=== PATIENT | male | born 1945 | race Caucasian/White ===

== ENCOUNTER 2022-08-27 12:19 | Emergency (ER) | payer OTHER, MEDICARE ==
[2022-08-27] MEDS ORDERED: Morphine 10 MG/ML Syringe IVPUSH ONE ×2 (12:29→12:40)
[2022-08-27] MEDS ORDERED: Ondansetron 4 MG/2 ML SDV IVPUSH ONE (12:30)
[2022-08-27] MEDS: Sodium Chloride 0.9% 10 ML Syringe FLUSH PRN ×4 (12:48→14:40)
[2022-08-27] MEDS ORDERED: HYDROmorphone 1 MG/ML Syringe IVPUSH PRN (12:53)
[2022-08-27 13:09] LABS: ANION GAP 15.5 meq/L (7-15)
[2022-08-27] MEDS ORDERED: fentaNYL 100 MCG/2 ML SDV IVPUSH ONE ×2 (13:10→13:50)
[2022-08-27] MEDS ORDERED: Iopamidol 612 MG/ML 100 ML Bottle IVPUSH STA (13:37)
== END 2022-08-27 14:50 ==
LOC: LL.ED 12:19
DX: K66.8 Other specified disorders of peritoneum (principal); E83.42 Hypomagnesemia; E87.6 Hypokalemia; I10 Essential (primary) hypertension; M19.90 Unspecified osteoarthritis, unspecified site; E11.9 Type 2 diabetes mellitus without complications; E66.9 Obesity, unspecified; Z68.23 Body mass index [BMI] 23.0-23.9, adult; Z88.0 Allergy status to penicillin; Z88.1 Allergy status to other antibiotic agents; Z88.8 Allergy status to other drugs, medicaments and biological substances; Z88.2 Allergy status to sulfonamides; Z79.82 Long term (current) use of aspirin; Z79.899 Other long term (current) drug therapy; Z79.4 Long term (current) use of insulin
CPT/HCPCS: 36415; 71045; 74177; 80053; 82150; 83605; 83690; 83735; 84484; 85025; 96374; 96375; 96376; 99284; 99285-25; J1170; J2270; J2405; J3010; J3490; Q9967

== ENCOUNTER 2022-09-11 18:53 | Emergency (ER) | payer OTHER, MEDICARE ==
[2022-09-11] MEDS ORDERED: 50% Dextrose in Water 50 ML Syringe IVPUSH ONE ×3 (19:00→22:51)
[2022-09-11] MEDS ORDERED: Sodium Chloride 0.9% 1,000 ML IV SCH ×2 (19:00→21:45)
[2022-09-11 19:47] LABS: ANION GAP 17.1 meq/L (7-15)
[2022-09-11] MEDS ORDERED: 50% Dextrose in Water 50 ML Syringe ONE ×3 (20:26→23:13)
[2022-09-11] MEDS ORDERED: Potassium Chloride Riders 10 MEQ in Premix Bag 2 BAG IV ONE (20:36)
[2022-09-11] MEDS ORDERED: Potassium Chloride Riders 10 MEQ in Premix Bag 1 BAG IV SCH ×2 (20:45→21:45)
[2022-09-11] MEDS: Potassium Chloride Riders 10 MEQ in Premix Bag 1 BAG IV SCH ×2 (20:47→21:48)
[2022-09-11] MEDS ORDERED: Iopamidol 612 MG/ML 100 ML Bottle IVPUSH STA (21:55)
[2022-09-11] MEDS ORDERED: Dextrose 5%-0.45% NaCl 1,000 ML IV SCH (22:00)
[2022-09-11] MEDS: Sodium Chloride 0.9% 10 ML Syringe FLUSH PRN ×2 (22:20→22:57)
[2022-09-11 22:25] LABS: ANION GAP 15.7 meq/L (7-15)
[2022-09-11] MEDS ORDERED: Morphine 4 MG/ML Syringe IVPUSH ONE (22:53)
== END 2022-09-11 23:21 ==
LOC: LL.ED 18:53 → SUPCPDRO 18:53 → LL.ED 23:21
DX: E87.6 Hypokalemia (principal); E83.42 Hypomagnesemia; R74.02 Elevation of levels of lactic acid dehydrogenase [LDH]; I10 Essential (primary) hypertension; M19.90 Unspecified osteoarthritis, unspecified site; E11.9 Type 2 diabetes mellitus without complications; E66.9 Obesity, unspecified; Z68.24 Body mass index [BMI] 24.0-24.9, adult; Z88.0 Allergy status to penicillin; Z88.8 Allergy status to other drugs, medicaments and biological substances; Z88.2 Allergy status to sulfonamides; Z79.82 Long term (current) use of aspirin; Z79.899 Other long term (current) drug therapy
CPT/HCPCS: 36415; 70450; 71045; 72125; 73070-LT; 74177; 80053; 81001; 82140; 82150; 82947; 83605; 83690; 83735; 83880; 84100; 84132; 84484; 85025; 85379; 85610; 86140; 93005; 96365; 96366; 96375; 99285-25; J2270; J3480; J3490; J7030; J7042; Q9967